=== PATIENT | male | born 1990 | race Caucasian/White ===

== ENCOUNTER 2024-07-22 16:03 | Outpatient (CLI) | payer OTHER, SELFPAY ==
--- NOTE | ~2024-07-22 | XR_ITS ---
3 VIEWS LUMBAR SPINE Ordering provider: AARON Foster History: . no recent injury lbp with bilateral leg pain . Comparison: Feb 12 2012 FINDINGS: VERTEBRAL BODIES: No visible fracture or subluxation. DISK SPACES: Normal. SOFT TISSUES: Normal. IMPRESSION: No acute osseous abnormality lumbar spine. Reviewed, dictated and finalized at location A.
== END 2024-07-22 16:04 | disposition home or self-care (01) ==
PROVIDERS: PCP Family Medicine; Visit Provider Physician Assistant Medical
DX: M54.50 Low back pain, unspecified (principal); M79.661 Pain in right lower leg; M79.662 Pain in left lower leg
CPT/HCPCS: 72100